=== PATIENT | female | born 1930 | race African-American/Black ===

== ENCOUNTER 2016-12-07 17:54 | Inpatient (IN) | payer MEDICARE, OTHER ==
[~2016-12-07] VITALS: Ht 157.5 cm; Wt 50.3 kg
[2016-12-07 18:02] VITALS: BP 111/48
[2016-12-07] MEDS ORDERED: Albuterol ud Inhalation HHN ONE (18:15)
[2016-12-07] MEDS ORDERED: Ipratropium 0.02% Inh Soln 2.5ml UD HHN ONE (18:15)
[2016-12-07] MEDS ORDERED: Solu-MEDROL 125mg Inj IVP ONE (18:30)
[2016-12-07] MEDS ORDERED: DUONEB 0.5-3(2.53 ML HHN (18:34)
[2016-12-07] MEDS ORDERED: DIGOXIN125 MCG GT (18:34)
[2016-12-07] MEDS ORDERED: BUDESONIDE0.5 MG/2 M IH (18:34)
[2016-12-07] MEDS ORDERED: REMERON15 MG GT (18:34)
[2016-12-07] MEDS ORDERED: MILK OF MA400 MG/51 GT (18:34)
[2016-12-07] MEDS ORDERED: LEVOTHYROXINE100 MCG GT (18:34)
[2016-12-07] MEDS ORDERED: METOPROLOL TART25 MG GT (18:34)
[2016-12-07] MEDS ORDERED: LIPITOR10 MG GT (18:34)
--- NOTE | 2016-12-07 18:36 | Emergency Room Report ---
History of Present Illness General Chief Complaint: Dyspnea/Respdistress Source: Medical Record, EMS Present Illness HPI Patient has history COPD malnutrition depression gastroesophageal reflux disease and hypertension with history of atrial fibrillation and respiratory failure in the past. Patient currently stays at a [facility]. Patient was noted to be acutely hypoxic EMS contacted patient by her further evaluation. Patient's primary care physician is Dr. Jaspal Gonsalez. Patient is essentially nonverbal and unable to provide much history she appeared confused. No further history is available. All history was obtained from medical records and discussion with EMS. Symptoms noted to be highly severe.No other modifying factors. No other associated signs and symptoms. No other complaints were noted. Allergies: Coded Allergies: TETRACYCLINE (Verified Allergy, Unknown, 12/07/16) Patient History Past Medical History: HTN, AFib, asthma, COPD, dementia Past Surgical History: other - tracheostomy, G-tube Pertinent Family History: none Social History Narrative stays at a [facility] Reviewed Nursing Documentation: PMH: Agreed, PSxH: Agreed Review of Systems All Other Systems: limited - poor mental status Physical Exam Vital Signs Date Time Temp Pulse Resp B/P (MAP) Pulse Ox O2 Delivery O2 Flow Rate FiO2 12/07/16 17:52 98.1 82 20 152/82 99 1.0 Sp02 EP Interpretation: reviewed, abnormal - low by me General Appearance: severe distress, thin, Chronically Ill Head: normocephalic, atraumatic Eyes: bilateral eye normal inspection ENT: normal ENT inspection, hearing grossly normal, normal voice Neck: normal inspection, full range of motion, supple, no bony tend Respiratory: respiratory distress, decreased breath sounds, accessory muscle use, wheezing, expiration, inspiration Cardiovascular #1: regular rate, rhythm, no edema Gastrointestinal: normal inspection, normal bowel sounds, non tender, soft, no guarding, no hernia Genitourinary: no CVA tenderness Musculoskeletal: normal inspection, back normal, normal range of motion Neurologic: responsive, other - grossly nonfocal Psychiatric: depressed affect, anxious Skin: normal inspection, normal color, no rash Procedures Critical Care Time Critical Care Time Patient had a critical medical condition which untreated could potentially result in life or limb threatening injury. Total critical care time excluding procedures was approximately 45 minutes. Medical Decision Making Diagnostic Impression: Primary Impression: Dyspnea Additional Impressions: Respiratory distress COPD exacerbation ER Course Patient presents emergency department today complaining of shortness of breath. Differential diagnoses include acute pneumonia, CHF, acute coronary syndrome, pneumothorax, asthma, COPD flare, just to name a few.Given the severity of the patient's presentation I felt this is a highly complex patient. This patient required extensive workup. Patient laboratory workup was not impressive except for hypoxia. Patient's chest x-ray was negative. However given severe patient presentation I felt the patient require immediate intervention. Patient was given albuterol Atrovent so Solu-Medrol. Patient improved significantly. Patient will require admission to telemetry because of persistent hypoxia. Case was discussed with Dr. Jaspal Gonsalez. Patient will be admitted to telemetry for further treatment. Labs Test 12/07/16 18:15 12/07/16 18:20 Arterial Blood pH 7.390 (7.350-7.450) Arterial Blood Partial Pressure CO2 45.6 mmHg (35.0-45.0) Arterial Blood Partial Pressure O2 64.0 mmHg (75.0-100.0) Arterial Blood HCO3 27.0 mmol/L (22.0-26.0) Arterial Blood Oxygen Saturation 91.4 % (92.0-98.0) Arterial Blood Base Excess 1.6 Adam Test Positive White Blood Count 13.5 K/UL (4.8-10.8) Red Blood Count 4.22 M/UL (4.20-5.40) Hemoglobin 12.2 G/DL (12.0-16.0) Hematocrit 39.6 % (37.0-47.0) Mean Corpuscular Volume 94 FL (80-99) Mean Corpuscular Hemoglobin 28.9 PG (27.0-31.0) Mean Corpuscular Hemoglobin Concent 30.7 G/DL (32.0-36.0) Red Cell Distribution Width 13.5 % (11.6-14.8) Platelet Count 192 K/UL (150-450) Mean Platelet Volume 8.3 FL (6.5-10.1) Neutrophils (%) (Auto) 82.1 % (45.0-75.0) Lymphocytes (%) (Auto) 10.9 % (20.0-45.0) Monocytes (%) (Auto) 5.0 % (1.0-10.0) Eosinophils (%) (Auto) 0.9 % (0.0-3.0) Basophils (%) (Auto) 1.1 % (0.0-2.0) Prothrombin Time 10.3 SEC (9.30-11.50) Prothromb Time International Ratio 1.0 (0.9-1.1) Activated Partial Thromboplast Time 29 SEC (23-33) Sodium Level 140 MMOL/L (136-145) Potassium Level 5.0 MMOL/L (3.5-5.1) Chloride Level 101 MMOL/L (98-107) Carbon Dioxide Level 29 MMOL/L (21-32) Anion Gap 10 mmol/L (5-15) Blood Urea Nitrogen 32 mg/dL (7-18) Creatinine 1.1 MG/DL (0.55-1.30) Estimat Glomerular Filtration Rate mL/min (>60) Glucose Level 138 MG/DL (74-106) Calcium Level 9.5 MG/DL (8.5-10.1) Total Bilirubin 0.3 MG/DL (0.2-1.0) Aspartate Amino Transf (AST/SGOT) 42 U/L (15-37) Alanine Aminotransferase (ALT/SGPT) 65 U/L (12-78) Alkaline Phosphatase 105 U/L (46-116) Total Creatine Kinase 103 U/L (26-308) Creatine Kinase MB 2.2 NG/ML (0.0-3.6) Creatine Kinase MB Relative Index 2.1 Troponin I 0.015 ng/mL (0.000-0.056) Pro-B-Type Natriuretic Peptide 778 pg/mL (0-125) Total Protein 7.3 G/DL (6.4-8.2) Albumin 3.4 G/DL (3.4-5.0) Globulin 3.9 g/dL Albumin/Globulin Ratio 0.9 (1.0-2.7) Lipase 230 U/L (73-393) EKG Diagnostic Results Rate: normal Rhythm: NSR ST Segments: no acute changes Rhythm Strip Diag. Results EP Interpretation: yes Rate: 72 Rhythm: NSR, no PVC's, no ectopy Chest X-Ray Diagnostic Results Chest X-Ray Diagnostic Results : Chest X-Ray Ordered: Yes # of Views/Limited/Complete: 1 View Indication: Shortness of Breath EP Interpretation: Yes Interpretation: no consolidation, no effusion, no pneumothorax, no acute cardiopulmonary disease Impression: No acute disease Electronically Signed by: Electronically signed by Maci Francisco MD Last Vital Signs Date Time Temp Pulse Resp B/P (MAP) Pulse Ox O2 Delivery O2 Flow Rate FiO2 12/07/16 17:52 98.1 82 20 152/82 99 1.0 Status: improved Disposition: ADMITTED INPATIENT Condition: Serious MACI FRANCISCO M.D. Dec 07, 2016 18:36
[2016-12-07 18:56] LABS: PROTHROMBIN TIME 10.3 SEC (9.30-11.50)
[2016-12-07 19:03] LABS: BASOPHILS % (AUTO) 1.1 % (0.0-2.0); EOSINOPHILS % (AUTO) 0.9 % (0.0-3.0); LYMPHOCYTES % (AUTO) 10.9 % (20.0-45.0); MEAN CORPUSCULAR HEMOGLOBIN 28.9 PG (27.0-31.0); MEAN CORPUSCULAR HGB CONC 30.7 G/DL (32.0-36.0); MEAN CORPUSCULAR VOLUME 94 FL (80-99); MEAN PLATELET VOLUME 8.3 FL (6.5-10.1); NEUTROPHILS % (AUTO) 82.1 % (45.0-75.0); PLATELET COUNT 192 K/UL (150-450); RED BLOOD COUNT 4.22 M/UL (4.20-5.40); RED CELL DISTRIBUTION WIDTH 13.5 % (11.6-14.8); WHITE BLOOD COUNT 13.5 K/UL (4.8-10.8)
[2016-12-07 19:05] LABS: ABG ALLEN TEST POSITIVE; ABG BASE EXCESS 1.6; ABG PCO2 45.6 mmHg (35.0-45.0)
[2016-12-07 19:12] LABS: ALANINE AMINOTRANSFERASE 65 U/L (12-78); ALBUMIN/GLOBULIN RATIO 0.9 (1.0-2.7); ANION GAP 10 mmol/L (5-15); ASPARTATE AMINO TRANSFERASE 42 U/L (15-37); CALCIUM 9.5 MG/DL (8.5-10.1); CARBON DIOXIDE 29 MMOL/L (21-32); CHLORIDE 101 MMOL/L (98-107); CKMB 2.2 NG/ML (0.0-3.6); CREATININE 1.1 MG/DL (0.55-1.30); LIPASE 230 U/L (73-393); SODIUM 140 MMOL/L (136-145); TOTAL PROTEIN 7.3 G/DL (6.4-8.2)
[2016-12-07 19:30] VITALS: BP 116/47
[2016-12-07 21:31] VITALS: BP 110/60
[2016-12-07] MEDS ORDERED: Albuterol/Ipratropium 3ml neb HHN PRN (23:45)
[2016-12-08 00:25] VITALS: BP 112/65
[2016-12-08 04:21] VITALS: BP 116/59
--- NOTE | 2016-12-08 07:02 | Wound Care Consultation ---
Wound Assessment Wound Assessment : Wound Number: 1 Wound Present on Admission: Yes New Wound: No Status Change of Wound: No Wound Location Body Site Modif: mid Wound Location Body Site: sacral Wound Type: pressure ulcer Kristyn Test: Does not Kristyn Pressure Ulcer Stage: III - healing Wound Thickness: Full Thickness Wound Length: 2.5 Wound Width: 2.0 Wound Depth: less than 0.1 Percent of Wound Harvel/Red: 100 Wound Drainage Amount: None Wound Drainage Odor: None/Absent Tissue Surrounding Wound: Intact Wound General Appearance: Reddened Wound Comment #1 Sacral healing stage III pressure ulcer #2 Left and right heels and feet with dry and flaky skin Recommendation -Sacral healing stage III pressure ulcer, Cleanse with saline, pat dry, apply Triad cream, cover with bordered gauze daily and PRN soiled/dislodged -Left heel, right heels, left foot and right foot noted with dry and flaky skin, Cleanse with soap and water, pat dry apply A&D ointment daily -Keep clean and dry -Turn and reposition -Optimize nutrition -Low air loss SPR mattress -Offload both heels -Heel protector on both heels -Assess and f/u accordingly for any changes MIGUEL NJ RN Dec 08, 2016 07:02
[2016-12-08 07:55] LABS: MEAN CORPUSCULAR HEMOGLOBIN 30.2 PG (27.0-31.0); MEAN CORPUSCULAR HGB CONC 32.6 G/DL (32.0-36.0); MEAN CORPUSCULAR VOLUME 93 FL (80-99); MEAN PLATELET VOLUME 9.1 FL (6.5-10.1); PLATELET COUNT 198 K/UL (150-450); RED BLOOD COUNT 4.12 M/UL (4.20-5.40); RED CELL DISTRIBUTION WIDTH 13.3 % (11.6-14.8); WHITE BLOOD COUNT 15.3 K/UL (4.8-10.8)
[2016-12-08 08:13] LABS: ALANINE AMINOTRANSFERASE 54 U/L (12-78); ALBUMIN/GLOBULIN RATIO 0.7 (1.0-2.7); ANION GAP 12 mmol/L (5-15); ASPARTATE AMINO TRANSFERASE 27 U/L (15-37); CALCIUM 9.6 MG/DL (8.5-10.1); CARBON DIOXIDE 28 MMOL/L (21-32); CHLORIDE 101 MMOL/L (98-107); CREATININE 1.5 MG/DL (0.55-1.30); POTASSIUM 4.8 MMOL/L (3.5-5.1); SODIUM 141 MMOL/L (136-145); TOTAL PROTEIN 7.6 G/DL (6.4-8.2)
[2016-12-08 08:21] VITALS: BP 116/59
[2016-12-08] MEDS: Vitamin A&D Oint 2oz Tube TOPIC SCH (09:00)
[2016-12-08 10:01] LABS: BAND NEUTROPHILS % (MANUAL) 4 % (0-8); BASOPHILS % (MANUAL) 0 % (0-2); EOSINOPHILS % (MANUAL) 0 % (0-3); LYMPHOCYTES % (MANUAL) 6 % (20-45); NEUTROPHILS % (MANUAL) 88 % (45-75); PLATELET ESTIMATE ADEQUATE; PLATELET MORPHOLOGY NORMAL; TOTAL CELLS COUNTED 100
[2016-12-08] MEDS: Milk of Magnesia 30ml Ud GT SCH (10:20)
[2016-12-08] MEDS: Multivitamin w/Minerals tab ORAL SCH (10:20)
[2016-12-08] MEDS: Digoxin 0.125mg tab GT SCH (10:21)
[2016-12-08] MEDS: Metoprolol 25mg tab GT SCH (10:22)
--- NOTE | 2016-12-08 10:34 | Diagnostic Imaging Report ---
Indication: COUGH Technique: One view of the chest Comparison: none Findings: Lungs and pleural spaces are clear. Aorta is tortuous and calcified. Impression: No acute process This agrees with the preliminary interpretation provided by the emergency room physician
[2016-12-08 11:26] VITALS: BP 132/71
--- NOTE | 2016-12-08 12:39 | Diagnostic Imaging Report ---
APPROVED REPORT CPT Code: 90860 Present Symptoms Shortness of breath BILATERAL: Imaging reveals a patent deep venous system bilaterally. There is no evidence of thrombus within the femoral, popliteal or tibial segments. The greater saphenous veins are also within normal limits. Doppler indicates normal spontaneous flow within these segments.
--- NOTE | 2016-12-08 14:10 | Consultation ---
Consult Note Assessment/Plan dict COPD exac steroids, abx, SOFY JONES Dec 08, 2016 14:10
--- NOTE | 2016-12-08 14:18 | Infectious Diseases Prog Note ---
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 Subjective Allergies: Coded Allergies: TETRACYCLINE (Verified Allergy, Unknown, 12/07/16) Objective Vital Signs Last 24 Hour Vital Signs Date Time Temp Pulse Resp B/P (MAP) Pulse Ox O2 Delivery O2 Flow Rate FiO2 12/08/16 11:26 97.8 84 18 132/71 99 Nasal Cannula 2.0 12/08/16 10:22 82 116/59 12/08/16 10:21 82 12/08/16 08:21 97.9 82 18 116/59 99 Nasal Cannula 2.0 12/08/16 08:04 92 16 Nasal Cannula 2.0 28 12/08/16 04:21 97.9 79 20 116/59 99 Nasal Cannula 2.0 79 12/08/16 03:46 81 12/08/16 00:25 98.1 83 22 112/65 98 Nasal Cannula 2.0 12/08/16 00:00 81 12/07/16 22:48 77 18 116/89 99 Room Air 12/07/16 21:31 98.1 70 18 110/60 100 Nasal Cannula 6.0 73 12/07/16 19:30 98.1 73 18 116/47 100 Simple Mask 6.0 12/07/16 19:15 64 18 100 Simple Mask 6.0 12/07/16 19:06 85 18 94 Room Air 12/07/16 19:06 85 15 Room Air 12/07/16 18:02 73 15 111/48 100 Non-Rebreather 15.0 12/07/16 18:02 82 20 Non-Rebreather 15.0 12/07/16 17:52 98.1 82 20 152/82 99 1.0 Height (Feet): 5 Height (Inches): 2.00 Weight (Pounds): 111 Laboratory Tests Test 12/07/16 18:15 12/07/16 18:20 12/08/16 05:30 Arterial Blood pH 7.390 (7.350-7.450) Arterial Blood Partial Pressure CO2 45.6 mmHg (35.0-45.0) H Arterial Blood Partial Pressure O2 64.0 mmHg (75.0-100.0) L Arterial Blood HCO3 27.0 mmol/L (22.0-26.0) H Arterial Blood Oxygen Saturation 91.4 % (92.0-98.0) L Arterial Blood Base Excess 1.6 Adam Test Positive White Blood Count 13.5 K/UL (4.8-10.8) H 15.3 K/UL (4.8-10.8) H Red Blood Count 4.22 M/UL (4.20-5.40) 4.12 M/UL (4.20-5.40) L Hemoglobin 12.2 G/DL (12.0-16.0) 12.5 G/DL (12.0-16.0) Hematocrit 39.6 % (37.0-47.0) 38.2 % (37.0-47.0) Mean Corpuscular Volume 94 FL (80-99) 93 FL (80-99) Mean Corpuscular Hemoglobin 28.9 PG (27.0-31.0) 30.2 PG (27.0-31.0) Mean Corpuscular Hemoglobin Concent 30.7 G/DL (32.0-36.0) L 32.6 G/DL (32.0-36.0) Red Cell Distribution Width 13.5 % (11.6-14.8) 13.3 % (11.6-14.8) Platelet Count 192 K/UL (150-450) 198 K/UL (150-450) Mean Platelet Volume 8.3 FL (6.5-10.1) 9.1 FL (6.5-10.1) Neutrophils (%) (Auto) 82.1 % (45.0-75.0) H % (45.0-75.0) Lymphocytes (%) (Auto) 10.9 % (20.0-45.0) L % (20.0-45.0) Monocytes (%) (Auto) 5.0 % (1.0-10.0) % (1.0-10.0) Eosinophils (%) (Auto) 0.9 % (0.0-3.0) % (0.0-3.0) Basophils (%) (Auto) 1.1 % (0.0-2.0) % (0.0-2.0) Prothrombin Time 10.3 SEC (9.30-11.50) Prothromb Time International Ratio 1.0 (0.9-1.1) Activated Partial Thromboplast Time 29 SEC (23-33) Sodium Level 140 MMOL/L (136-145) 141 MMOL/L (136-145) Potassium Level 5.0 MMOL/L (3.5-5.1) 4.8 MMOL/L (3.5-5.1) Chloride Level 101 MMOL/L (98-107) 101 MMOL/L (98-107) Carbon Dioxide Level 29 MMOL/L (21-32) 28 MMOL/L (21-32) Anion Gap 10 mmol/L (5-15) 12 mmol/L (5-15) Blood Urea Nitrogen 32 mg/dL (7-18) H 37 mg/dL (7-18) H Creatinine 1.1 MG/DL (0.55-1.30) 1.5 MG/DL (0.55-1.30) H Estimat Glomerular Filtration Rate mL/min (>60) mL/min (>60) Glucose Level 138 MG/DL (74-106) H 146 MG/DL (74-106) H Calcium Level 9.5 MG/DL (8.5-10.1) 9.6 MG/DL (8.5-10.1) Total Bilirubin 0.3 MG/DL (0.2-1.0) 0.4 MG/DL (0.2-1.0) Aspartate Amino Transf (AST/SGOT) 42 U/L (15-37) H 27 U/L (15-37) Alanine Aminotransferase (ALT/SGPT) 65 U/L (12-78) 54 U/L (12-78) Alkaline Phosphatase 105 U/L (46-116) 94 U/L (46-116) Total Creatine Kinase 103 U/L (26-308) Creatine Kinase MB 2.2 NG/ML (0.0-3.6) Creatine Kinase MB Relative Index 2.1 Troponin I 0.015 ng/mL (0.000-0.056) Pro-B-Type Natriuretic Peptide 778 pg/mL (0-125) H Total Protein 7.3 G/DL (6.4-8.2) 7.6 G/DL (6.4-8.2) Albumin 3.4 G/DL (3.4-5.0) 3.2 G/DL (3.4-5.0) L Globulin 3.9 g/dL 4.4 g/dL Albumin/Globulin Ratio 0.9 (1.0-2.7) L 0.7 (1.0-2.7) L Lipase 230 U/L (73-393) Differential Total Cells Counted 100 Neutrophils % (Manual) 88 % (45-75) H Lymphocytes % (Manual) 6 % (20-45) L Monocytes % (Manual) 2 % (1-10) Eosinophils % (Manual) 0 % (0-3) Basophils % (Manual) 0 % (0-2) Band Neutrophils 4 % (0-8) Platelet Estimate Adequate Platelet Morphology Normal Red Blood Cell Morphology Normal Current Medications Medications (Trade) Dose Ordered Sig/Jill Route PRN Reason Start Time Stop Time Status Last Admin Dose Admin Acetaminophen (Tylenol) 650 mg Q4H PRN ORAL Mild Pain/Temp > 100.5 12/08/16 00:30 01/07/17 00:29 Albuterol/ Ipratropium (Albuterol/ Ipratropium) 3 ml Q4H HHN 12/08/16 14:15 12/12/16 23:44 UNV Atorvastatin Calcium (Lipitor) 10 mg BEDTIME GT 12/08/16 21:00 01/07/17 20:59 Digoxin (Lanoxin) 0.125 mg DAILY GT 12/08/16 09:00 01/07/17 08:59 12/08/16 10:21 Levofloxacin 100 ml @ 100 mls/hr Q24H IVPB 12/08/16 14:15 12/15/16 14:14 UNV Levothyroxine Sodium (Synthroid) 100 mcg DAILY@0630 ORAL 12/08/16 06:30 01/07/17 06:29 12/08/16 06:26 Magnesium Hydroxide (Mom) 7.5 ml DAILY GT 12/08/16 09:00 01/07/17 08:59 12/08/16 10:20 Methylprednisolone Sodium Succinate (Solu-MEDROL) 40 mg EVERY 8 HOURS IVP 12/08/16 14:15 01/07/17 14:14 UNV Metoprolol Tartrate (Lopressor) 25 mg DAILY GT 12/08/16 09:00 01/07/17 08:59 12/08/16 10:22 Mirtazapine (Remeron) 22.5 mg EVERY 12 HOURS GT 12/08/16 09:00 01/07/17 08:59 12/08/16 10:21 Multivitamins Therapeutic (Therapeutic Multivitamin) 1 ea DAILY ORAL 12/08/16 09:00 01/07/17 08:59 12/08/16 10:20 Vitamin A/Vitamin D (A & D Oint) 1 applic DAILY TOPIC 12/08/16 09:00 01/07/17 08:59 12/08/16 09:00 Larissa Ding M.D. Dec 08, 2016 14:18
[2016-12-08] MEDS: Albuterol/Ipratropium 3ml neb HHN SCH ×2 (15:00→20:01)
[2016-12-08 16:07] VITALS: BP 119/67
[2016-12-08] MEDS: Levofloxacin 250mg/D5W 50ml IVPB SCH (16:09)
[2016-12-08] MEDS: Solu-MEDROL 40mg Inj IVP SCH ×2 (16:09→21:03)
[2016-12-08 20:00] VITALS: BP 132/69
--- NOTE | 2016-12-08 23:00 | Consultation ---
DATE OF CONSULTATION: 12/08/2016 PULMONARY CONSULTATION CHIEF COMPLAINT: Low saturation and short of breath. HISTORY OF PRESENT ILLNESS: The patient is a poor historian. The records were reviewed. She was brought to the emergency department from a [place] [facility] by paramedics because of low saturation. She is a past smoker and is known to have COPD and respiratory failure in the past. She is coughing and producing some sputum. She has no chest pain and is not short of breath at the present. PAST MEDICAL HISTORY: Chronic obstructive pulmonary disease, malnutrition, depression, acid reflux disease, hypertension, atrial fibrillation, possible asthma, dementia, prior tracheostomy, and gastric feeding tube. ALLERGIES: Tetracycline. MEDICATIONS: Reviewed. REVIEW OF SYSTEMS: Cannot be obtained. PHYSICAL EXAMINATION: GENERAL: The patient is alert and responds appropriately to verbal commands but seems to be aphasic and mumbles. VITAL SIGNS: Stable with saturation 99% on 2 liters. There is no high fever. SKIN: Warm and dry. She appears chronically ill and malnourished. HEENT: Head is normocephalic. She is on nasal oxygen. CHEST: The chest has decreased air entry. There is no consolidation or wheezing. CARDIAC: Rhythm is regular. ABDOMEN: Soft with G-tube in place. The liver and spleen are not enlarged. EXTREMITIES: No clubbing, cyanosis, or edema. LABORATORY AND DIAGNOSTIC DATA: White count is elevated at 15,000, hemoglobin is 12.5. There is a left shift. Chest x-ray is clear. Laboratory studies show creatinine 1.5. Albumin is 3.2. Blood gas showed pH 7.39, pCO2 45, and pO2 64 on unknown amount of oxygen. She has no urine. IMPRESSION: 1. Chronic obstructive pulmonary disease exacerbation. 2. Leukocytosis, consider urinary tract infection or bronchitis. 3. Dementia. 4. History of stroke with right hemiparesis, aphasia and dysarthria. 5. Hypertension. 6. Gastrostomy tube. 7. History of atrial fibrillation. PLAN: The patient will be treated with antibiotics, respiratory therapy, and steroids. We will monitor her cardiac rhythm and saturation. The patient was discussed with the Infectious Disease small business consultant. Thank you for asking me to see her in consultation. Steve Barrientos M.D. DR: RAGHAV JOB#: [id number] CC: Steve Barrientos M.D.; Fax#: [phone] NAEEM CENTENO M.D. ; FAX#: [phone]
--- NOTE | 2016-12-08 23:30 | Consultation ---
DATE OF CONSULTATION: 12/08/2016 INFECTIOUS DISEASES CONSULTATION CONSULTING PHYSICIAN: Larissa Ding M.D. REQUESTING PHYSICIAN: Jaspal Khan M.D. REASON FOR CONSULTATION: Acute bronchitis with COPD exacerbation. Recommendation for antibiotics treatment. HISTORY OF PRESENT ILLNESS: The patient is an 85-year-old female with history of dementia, COPD, depression, GERD, and atrial fibrillation with respiratory failure in the past was [facility] for hypoxemia, shortness of breath, and cough. The patient was found to be confused, unable to provide any history. In the emergency room, she had low oxygenation with temperature of 98.1, mildly elevated white count. Her ABG showed CO2 retention with low oxygen saturation. The patient was admitted to the hospital for further evaluation and management and I was consulted by the primary provider for antibiotics choice and further treatment. As of note, the patient is demented, baseline poor historian, cannot not provide good history. History was mainly obtained from the medical record. PAST MEDICAL HISTORY: Significant for dementia, hypertension, atrial fibrillation, asthma, and COPD. PAST SURGICAL HISTORY: She had tracheostomy status post removal in the past and G-tube placement. ALLERGIES: She is allergic to tetracycline. MEDICATIONS: She received methylprednisone nebulizer treatment in the emergency room. For the rest of her medications, please refer to [facility]. FAMILY HISTORY: Unable to obtain. SOCIAL HISTORY: The [facility] the [facility]. No recent drugs, tobacco, or alcohol. REVIEW OF SYSTEMS: Unable to obtain, the patient is poor historian. PHYSICAL EXAMINATION: VITAL SIGNS: Temperature 97.8, pulse 84, respiration 18, blood pressure 132/71, and saturation 99% on 2 liters nasal cannula. GENERAL: Elderly female, up in bed, awake, alert, follows commands, demented at baseline, not in acute distress. Normal breathing efforts. HEENT: Normocephalic and atraumatic. Pupils are reactive to light equally. Moist oral mucosa. No exudate. NECK: Supple. No lymphadenopathy. CARDIOVASCULAR: Regular rate and rhythm. No murmur. No gallop. LUNGS: She had crackles with expiratory wheezing mainly on the left side of her chest. Normal breathing effort. ABDOMEN: Soft, nontender, and nondistended. Positive bowel sounds. No hepatosplenomegaly or ascites. G-tube site looks intact. EXTREMITIES: No edema or cyanosis. SKIN: No rash or hives. She had a sacral small skin break with no drainage or exudate or foul smelling. LABORATORY AND DIAGNOSTIC DATA: Labs showed white count of 15.3, hemoglobin of 12.5, and platelet count of 198. BUN of 37 and creatinine of 1.5. AST of 27 and ALT of 54. Imaging, chest x-ray showed no acute infiltration or consolidation. Venous Doppler of both legs was negative for DVT. ASSESSMENT AND RECOMMENDATION: 1. Acute bronchitis. We will send influenza screening test and start Levaquin empiric therapy. We will repeat chest x-ray. 2. Chronic obstructive pulmonary disease exacerbation due to the above. Continue nebulizer treatment and steroids as per Pulmonary. Monitor chest x-ray. 3. Respiratory distress due to the above. Continue oxygen to keep O2 saturation more than 90%. Continue inhalers. Monitor chest x-ray. Pulmonary is following. Thank you for the consult. Larissa Ding M.D. DR: KAYLEIGH JOB#: [id number] CC:
[2016-12-09] VITALS: BP 124/72
[2016-12-09] MEDS: Albuterol/Ipratropium 3ml neb HHN SCH ×7 (00:17→23:34)
[2016-12-09 04:09] VITALS: BP 127/74
[2016-12-09] MEDS: Solu-MEDROL 40mg Inj IVP SCH ×3 (06:00→21:21)
--- NOTE | 2016-12-09 06:16 | History and Physical Report ---
DATE OF ADMISSION: 12/07/2016 HISTORY OF PRESENT ILLNESS: [facility] She is admitted for hypoxia and COPD exacerbation, rule out pneumonia. The patient is a poor historian and has advanced dementia and cannot rely upon her history. She does have some cough and shortness of breath. Cannot obtain anymore further history. The patient was brought into the hospital to the emergency room via 911 with hypoxia and respiratory distress. PAST MEDICAL HISTORY: COPD, hyperlipidemia, advanced dementia, arrhythmia, hypothyroidism, hypertension, and depression. PAST SURGICAL HISTORY: Denies. MEDICATIONS: Lipitor, digoxin, Levoxyl, breathing treatment, magnesium, metoprolol, and mirtazapine. ALLERGIES: Tetracycline. SOCIAL HISTORY: Denies history of alcohol or illicit drugs. She [facility]. FAMILY HISTORY: Unable to obtain. REVIEW OF SYSTEMS: HEENT: Denies headaches. RESPIRATORY: Reports shortness of breath, wheezing, and cough. CARDIOVASCULAR: Denies chest pain. GASTROINTESTINAL: Denies nausea, vomiting, or diarrhea. EXTREMITIES: She does have mild back pain, which is chronic. CENTRAL NERVOUS SYSTEM: No change in vision or speech pattern, feels weak. PHYSICAL EXAMINATION: GENERAL: The patient is on the thinner side. VITAL SIGNS: Temperature is 97.9, pulse 83, and blood pressure 116/59. HEENT: PERRLA. NECK: Supple. No lymphadenopathy. CHEST: Bibasilar wheezing. CARDIOVASCULAR: Regular rate and rhythm. ABDOMEN: Soft and nontender. EXTREMITIES: No edema. NEUROLOGIC: Generalized weakness. LABORATORY AND DIAGNOSTIC DATA: WBC of 14.5, hemoglobin 12.2, and platelets 192. Sodium 140, potassium 5, BUN 32, creatinine 1.1, and glucose of 138. Chest x-ray shows no acute process. ASSESSMENT: 1. Chronic obstructive pulmonary disease exacerbation. 2. Hypoxia. 3. Shortness of breath. PLAN: I have asked Dr. Sanchez, Dr. Barrientos, and Dr. Lewis to see the patient for dehydration and above-mentioned diagnoses and treatment. Jaspal Khan M.D. DR: ILIANA JOB#: [id number] CC:
[2016-12-09 08:00] VITALS: BP 115/56
[2016-12-09] MEDS: Multivitamin w/Minerals tab ORAL SCH (09:19)
[2016-12-09] MEDS: Digoxin 0.125mg tab GT SCH (09:20)
[2016-12-09] MEDS: Metoprolol 25mg tab GT SCH (09:21)
[2016-12-09] MEDS: Milk of Magnesia 30ml Ud GT SCH (09:22)
[2016-12-09] MEDS: Vitamin A&D Oint 2oz Tube TOPIC SCH (09:23)
[2016-12-09 12:00] VITALS: BP 107/60
--- NOTE | 2016-12-09 13:38 | Infectious Diseases Prog Note ---
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 Subjective Constitutional: Reports: no symptoms HEENT: Reports: no symptoms Respiratory: Reports: no symptoms Breasts: Reports: no symptoms Cardiovascular: Reports: no symptoms Gastrointestinal/Abdominal: Reports: no symptoms Genitourinary: Reports: no symptoms Neurologic: Reports: no symptoms Psychiatric: Reports: no symptoms Skin: Reports: no symptoms Endocrine: Reports: no symptoms Hematologic: Reports: no symptoms Allergies: Coded Allergies: TETRACYCLINE (Verified Allergy, Unknown, 12/07/16) Objective Vital Signs Last 24 Hour Vital Signs Date Time Temp Pulse Resp B/P (MAP) Pulse Ox O2 Delivery O2 Flow Rate FiO2 12/09/16 12:00 97.5 73 18 107/60 98 Nasal Cannula 2.0 12/09/16 11:30 Nasal Cannula 12/09/16 11:30 Nasal Cannula 12/09/16 09:21 74 127/74 12/09/16 09:20 74 12/09/16 08:00 97.0 91 18 115/56 99 Nasal Cannula 2.0 12/09/16 07:24 74 16 99 Nasal Cannula 2.0 12/09/16 07:17 Nasal Cannula 2.0 12/09/16 07:17 12/09/16 07:17 96 Nasal Cannula 2.0 12/09/16 07:17 78 16 96 Nasal Cannula 2.0 12/09/16 04:09 96.6 83 18 127/74 98 Room Air 12/09/16 04:00 83 12/09/16 03:50 88 18 100 Nasal Cannula 2.0 12/09/16 03:48 85 18 95 Nasal Cannula 2.0 12/09/16 00:14 82 18 100 Nasal Cannula 2.0 12/09/16 00:13 81 18 95 Room Air 12/09/16 00:00 97.2 80 124/72 97 Nasal Cannula 12/09/16 00:00 82 12/08/16 21:08 94 Nasal Cannula 2.0 12/08/16 21:08 Nasal Cannula 2.0 28 12/08/16 20:10 70 18 100 Nasal Cannula 2.0 28 12/08/16 20:00 84 16 Nasal Cannula 2.0 28 12/08/16 20:00 77 12/08/16 20:00 84 18 95 Room Air 12/08/16 20:00 98.1 84 18 132/69 96 12/08/16 16:07 97.9 78 18 119/67 100 Nasal Cannula 2.0 12/08/16 16:00 70 Height (Feet): 5 Height (Inches): 2.00 Weight (Pounds): 111 General Appearance: WD/WN, no acute distress HEENT: normocephalic, atraumatic, anicteric, mucous membranes moist, PERRL Respiratory/Chest: chest wall non-tender, lungs clear, normal breath sounds, no respiratory distress, no accessory muscle use Cardiovascular: normal peripheral pulses, normal rate, regular rhythm, no gallop/murmur, no JVD Abdomen: normal bowel sounds, soft, non tender, no organomegaly, non distended , no mass Extremities: no cyanosis, no clubbing Skin: no rash, no lesions, no ulcers Neurologic/Psychiatric: alert Microbiology Date/Time Source Procedure Growth Status 12/07/16 18:31 Blood Blood Culture - Preliminary NO GROWTH AFTER 24 HOURS Resulted 12/07/16 18:20 Blood Blood Culture - Preliminary NO GROWTH AFTER 24 HOURS Resulted 12/08/16 14:30 Nasopharynx Influenza Types A,B Antigen (KENDAL) - Final Complete 12/07/16 22:40 Nasal Nares MRSA Culture - Final NO METHICILLIN RESISTANT STAPH AUREUS... Complete Current Medications Medications (Trade) Dose Ordered Sig/Jill Route PRN Reason Start Time Stop Time Status Last Admin Dose Admin Acetaminophen (Tylenol) 650 mg Q4H PRN ORAL Mild Pain/Temp > 100.5 12/08/16 00:30 01/07/17 00:29 12/09/16 09:19 Albuterol/ Ipratropium (Albuterol/ Ipratropium) 3 ml Q4HRT HHN 12/08/16 15:00 12/13/16 14:59 12/09/16 07:17 Ascorbic Acid (Vitamin C) 500 mg DAILY PEG 12/10/16 09:00 01/09/17 08:59 Atorvastatin Calcium (Lipitor) 10 mg BEDTIME GT 12/08/16 21:00 01/07/17 20:59 12/08/16 21:01 Digoxin (Lanoxin) 0.125 mg DAILY GT 12/08/16 09:00 01/07/17 08:59 12/09/16 09:20 Levofloxacin 50 ml @ 50 mls/hr Q24H IVPB 12/09/16 15:00 12/16/16 14:59 12/08/16 16:09 Levothyroxine Sodium (Synthroid) 100 mcg DAILY@0630 ORAL 12/08/16 06:30 01/07/17 06:29 12/09/16 06:00 Magnesium Hydroxide (Mom) 7.5 ml DAILY GT 12/08/16 09:00 01/07/17 08:59 12/09/16 09:22 Methylprednisolone Sodium Succinate (Solu-MEDROL) 40 mg EVERY 8 HOURS IVP 12/08/16 15:00 01/07/17 14:59 12/09/16 06:00 Metoprolol Tartrate (Lopressor) 25 mg DAILY GT 12/08/16 09:00 01/07/17 08:59 12/09/16 09:21 Mirtazapine (Remeron) 22.5 mg EVERY 12 HOURS GT 12/08/16 09:00 01/07/17 08:59 12/09/16 09:17 Multivitamins Therapeutic (Therapeutic Multivitamin) 1 ea DAILY ORAL 12/08/16 09:00 01/07/17 08:59 12/09/16 09:19 Vitamin A/Vitamin D (A & D Oint) 1 applic DAILY TOPIC 12/08/16 09:00 01/07/17 08:59 12/09/16 09:23 Larissa Ding M.D. Dec 09, 2016 13:38
--- NOTE | 2016-12-09 13:42 | Pulmonology Progress Note ---
Assessment/Plan Assessment/Plan IMPRESSION: 1. Chronic obstructive pulmonary disease exacerbation. 2. Leukocytosis, consider urinary tract infection or bronchitis. 3. Dementia. 4. History of stroke with right hemiparesis, aphasia and dysarthria. 5. Hypertension. 6. Gastrostomy tube. 7. History of atrial fibrillation. PLAN: abx steroids and taper nebs po, modified high risk of aspition wound care o2 and check ra sats check sunday Subjective ROS Limited/Unobtainable: Yes Allergies: Coded Allergies: TETRACYCLINE (Verified Allergy, Unknown, 12/07/16) Subjective no events noted still iwth cough no cp nv or bleeding does not get oob on o2 modified po Objective Last 24 Hour Vital Signs Date Time Temp Pulse Resp B/P (MAP) Pulse Ox O2 Delivery O2 Flow Rate FiO2 12/09/16 12:00 97.5 73 18 107/60 98 Nasal Cannula 2.0 12/09/16 11:30 Nasal Cannula 12/09/16 11:30 Nasal Cannula 12/09/16 09:21 74 127/74 12/09/16 09:20 74 12/09/16 08:00 97.0 91 18 115/56 99 Nasal Cannula 2.0 12/09/16 07:24 74 16 99 Nasal Cannula 2.0 12/09/16 07:17 Nasal Cannula 2.0 12/09/16 07:17 28 12/09/16 07:17 96 Nasal Cannula 2.0 12/09/16 07:17 78 16 96 Nasal Cannula 2.0 12/09/16 04:09 96.6 83 18 127/74 98 Room Air 12/09/16 04:00 83 12/09/16 03:50 88 18 100 Nasal Cannula 2.0 12/09/16 03:48 85 18 95 Nasal Cannula 2.0 12/09/16 00:14 82 18 100 Nasal Cannula 2.0 12/09/16 00:13 81 18 95 Room Air 12/09/16 00:00 97.2 80 124/72 97 Nasal Cannula 12/09/16 00:00 82 12/08/16 21:08 94 Nasal Cannula 2.0 12/08/16 21:08 Nasal Cannula 2.0 12/08/16 20:10 70 18 100 Nasal Cannula 2.0 12/08/16 20:00 84 16 Nasal Cannula 2.0 28 12/08/16 20:00 77 12/08/16 20:00 84 18 95 Room Air 12/08/16 20:00 98.1 84 18 132/69 96 12/08/16 16:07 97.9 78 18 119/67 100 Nasal Cannula 2.0 12/08/16 16:00 70 Intake and Output 12/09/16 12/10/16 19:00 07:00 # Bowel Movements 1 General Appearance: WD/WN Respiratory/Chest: rhonchi Cardiovascular: normal rate, regular rhythm Abdomen: soft, non tender, no organomegaly Skin: no rash, no lesions Neurologic/Psychiatric: disoriented Lymphatic: no neck adenopathy, no groin adenopathy Microbiology Date/Time Source Procedure Growth Status 12/07/16 18:31 Blood Blood Culture - Preliminary NO GROWTH AFTER 24 HOURS Resulted 12/07/16 18:20 Blood Blood Culture - Preliminary NO GROWTH AFTER 24 HOURS Resulted 12/08/16 14:30 Nasopharynx Influenza Types A,B Antigen (KENDAL) - Final Complete 12/07/16 22:40 Nasal Nares MRSA Culture - Final NO METHICILLIN RESISTANT STAPH AUREUS... Complete Current Medications Medications (Trade) Dose Ordered Sig/Jill Route PRN Reason Start Time Stop Time Status Last Admin Dose Admin Acetaminophen (Tylenol) 650 mg Q4H PRN ORAL Mild Pain/Temp > 100.5 12/08/16 00:30 01/07/17 00:29 12/09/16 09:19 Albuterol/ Ipratropium (Albuterol/ Ipratropium) 3 ml Q4HRT HHN 12/08/16 15:00 12/13/16 14:59 12/09/16 07:17 Ascorbic Acid (Vitamin C) 500 mg DAILY PEG 12/10/16 09:00 01/09/17 08:59 Atorvastatin Calcium (Lipitor) 10 mg BEDTIME GT 12/08/16 21:00 01/07/17 20:59 12/08/16 21:01 Digoxin (Lanoxin) 0.125 mg DAILY GT 12/08/16 09:00 01/07/17 08:59 12/09/16 09:20 Levofloxacin 50 ml @ 50 mls/hr Q24H IVPB 12/09/16 15:00 12/16/16 14:59 12/08/16 16:09 Levothyroxine Sodium (Synthroid) 100 mcg DAILY@0630 ORAL 12/08/16 06:30 01/07/17 06:29 12/09/16 06:00 Magnesium Hydroxide (Mom) 7.5 ml DAILY GT 12/08/16 09:00 01/07/17 08:59 12/09/16 09:22 Methylprednisolone Sodium Succinate (Solu-MEDROL) 40 mg EVERY 8 HOURS IVP 12/08/16 15:00 01/07/17 14:59 12/09/16 06:00 Metoprolol Tartrate (Lopressor) 25 mg DAILY GT 12/08/16 09:00 01/07/17 08:59 12/09/16 09:21 Mirtazapine (Remeron) 22.5 mg EVERY 12 HOURS GT 12/08/16 09:00 01/07/17 08:59 12/09/16 09:17 Multivitamins Therapeutic (Therapeutic Multivitamin) 1 ea DAILY ORAL 12/08/16 09:00 01/07/17 08:59 12/09/16 09:19 Vitamin A/Vitamin D (A & D Oint) 1 applic DAILY TOPIC 12/08/16 09:00 01/07/17 08:59 12/09/16 09:23 CHRISTA OVIEDO DO Dec 09, 2016 13:42
[2016-12-09 16:00] VITALS: BP 112/63
--- NOTE | 2016-12-09 20:27 | General Progress Note ---
Assessment/Plan Problem List: (1) Dyspnea ICD Codes: R06.00 - Dyspnea, unspecified SNOMED: 100914652 (2) Respiratory distress ICD Codes: R06.00 - Dyspnea, unspecified SNOMED: 791814627 (3) COPD exacerbation ICD Codes: J44.1 - Chronic obstructive pulmonary disease with (acute) exacerbation SNOMED: 077600812, 653379513 (4) Hypoxia ICD Codes: R09.02 - Hypoxemia SNOMED: 66020062, 611864492 Status: progressing Assessment/Plan copd exac improving not hypoxic afebrile reviewed chart and labs Subjective Constitutional: Reports: no symptoms Allergies: Coded Allergies: TETRACYCLINE (Verified Allergy, Unknown, 12/07/16) Objective Last 24 Hour Vital Signs Date Time Temp Pulse Resp B/P (MAP) Pulse Ox O2 Delivery O2 Flow Rate FiO2 12/09/16 19:56 77 18 99 Nasal Cannula 2.0 12/09/16 19:46 71 16 98 Nasal Cannula 2.0 12/09/16 19:46 98 Nasal Cannula 2.0 12/09/16 19:46 Nasal Cannula 2.0 12/09/16 18:27 96 12/09/16 16:13 76 18 100 Nasal Cannula 2.0 12/09/16 16:00 97.5 70 18 112/63 99 Nasal Cannula 2.0 12/09/16 16:00 74 16 100 Nasal Cannula 2.0 12/09/16 12:00 97.5 73 18 107/60 98 Nasal Cannula 2.0 12/09/16 12:00 75 12/09/16 11:30 Nasal Cannula 12/09/16 11:30 Nasal Cannula 12/09/16 09:21 74 127/74 12/09/16 09:20 74 12/09/16 08:00 96 12/09/16 08:00 97.0 91 18 115/56 99 Nasal Cannula 2.0 12/09/16 07:24 74 16 99 Nasal Cannula 2.0 12/09/16 07:17 Nasal Cannula 2.0 12/09/16 07:17 28 12/09/16 07:17 96 Nasal Cannula 2.0 12/09/16 07:17 78 16 96 Nasal Cannula 2.0 12/09/16 04:09 96.6 83 18 127/74 98 Room Air 12/09/16 04:00 83 12/09/16 03:50 88 18 100 Nasal Cannula 2.0 28 12/09/16 03:48 85 18 95 Nasal Cannula 2.0 28 12/09/16 00:14 82 18 100 Nasal Cannula 2.0 28 12/09/16 00:13 81 18 95 Room Air 12/09/16 00:00 97.2 80 124/72 97 Nasal Cannula 12/09/16 00:00 82 12/08/16 21:08 94 Nasal Cannula 2.0 12/08/16 21:08 Nasal Cannula 2.0 28 Intake and Output 12/09/16 12/10/16 19:00 07:00 Intake Total 273 ml Balance 273 ml Intake Oral 0 ml Free Water 200 ml Tube Feeding 73 ml # Voids 3 # Bowel Movements 1 Height (Feet): 5 Height (Inches): 2.00 Weight (Pounds): 111 General Appearance: confused Cardiovascular: normal rate Respiratory/Chest: chest wall non-tender Jaspal Khan MD Dec 09, 2016 20:27
[2016-12-09 20:28] VITALS: BP 116/68
[2016-12-10 00:11] VITALS: BP 132/71
[2016-12-10] MEDS: Norco 5mg/325mg tab ORAL PRN ×2 (00:18→22:03)
[2016-12-10] MEDS: Albuterol/Ipratropium 3ml neb HHN SCH ×6 (03:25→23:49)
[2016-12-10 04:03] VITALS: BP 127/79
[2016-12-10] MEDS: Solu-MEDROL 40mg Inj IVP SCH ×2 (05:53→20:52)
[2016-12-10 08:00] VITALS: BP 119/58
[2016-12-10] MEDS: Metoprolol 25mg tab GT SCH (09:00)
[2016-12-10] MEDS: Ascorbic Acid 500mg tab PEG SCH (09:00)
[2016-12-10] MEDS: Multivitamin w/Minerals tab ORAL SCH (09:00)
[2016-12-10] MEDS: Milk of Magnesia 30ml Ud GT SCH (09:00)
[2016-12-10] MEDS: Vitamin A&D Oint 2oz Tube TOPIC SCH (09:00)
[2016-12-10] MEDS: Digoxin 0.125mg tab GT SCH (09:00)
[2016-12-10 12:49] VITALS: BP 121/73
--- NOTE | 2016-12-10 12:56 | Pulmonology Progress Note ---
Assessment/Plan Assessment/Plan IMPRESSION: 1. Chronic obstructive pulmonary disease exacerbation. 2. Leukocytosis, consider urinary tract infection or bronchitis. 3. Dementia. 4. History of stroke with right hemiparesis, aphasia and dysarthria. 5. Hypertension. 6. Gastrostomy tube. 7. History of atrial fibrillation. PLAN: better today abx steroids and taper to q 12 nebs po, modified high risk of aspition wound care o2 and check ra sats check sunday Subjective ROS Limited/Unobtainable: Yes Allergies: Coded Allergies: TETRACYCLINE (Verified Allergy, Unknown, 12/07/16) Subjective no events noted more verbal today still iwth cough no cp nv or bleeding does not get oob on o2 modified po Objective Last 24 Hour Vital Signs Date Time Temp Pulse Resp B/P (MAP) Pulse Ox O2 Delivery O2 Flow Rate FiO2 12/10/16 12:49 97.5 80 18 121/73 100 Nasal Cannula 2.0 12/10/16 11:11 69 18 99 Nasal Cannula 2.0 12/10/16 11:04 69 18 98 Nasal Cannula 2.0 12/10/16 09:00 81 119/58 12/10/16 09:00 81 12/10/16 08:00 97.7 81 18 119/58 96 Nasal Cannula 2.0 12/10/16 07:15 81 18 98 Nasal Cannula 2.0 12/10/16 07:10 82 18 97 Nasal Cannula 2.0 12/10/16 07:10 Nasal Cannula 2.0 12/10/16 07:09 97 Nasal Cannula 2.0 12/10/16 04:03 97.0 88 20 127/79 99 12/10/16 04:00 82 12/10/16 03:33 78 16 99 Nasal Cannula 2.0 28 12/10/16 03:24 78 16 98 Nasal Cannula 2.0 12/10/16 01:17 96.4 12/10/16 00:11 96.4 77 20 132/71 98 Room Air 12/10/16 00:00 88 12/09/16 23:42 71 16 99 Nasal Cannula 2.0 28 12/09/16 23:34 68 16 97 Nasal Cannula 2.0 28 12/09/16 23:11 97.2 12/09/16 20:28 97.2 72 20 116/68 99 Room Air 12/09/16 20:00 83 12/09/16 19:56 77 18 99 Nasal Cannula 2.0 28 12/09/16 19:46 71 16 98 Nasal Cannula 2.0 28 12/09/16 19:46 98 Nasal Cannula 2.0 28 12/09/16 19:46 Nasal Cannula 2.0 28 12/09/16 18:27 96 12/09/16 16:13 76 18 100 Nasal Cannula 2.0 28 12/09/16 16:00 97.5 70 18 112/63 99 Nasal Cannula 2.0 12/09/16 16:00 74 16 100 Nasal Cannula 2.0 28 Intake and Output 12/10/16 12/11/16 19:00 07:00 # Voids 1 General Appearance: WD/WN HEENT: atraumatic, anicteric Respiratory/Chest: rhonchi Cardiovascular: normal rate, regular rhythm Abdomen: soft, non tender, no organomegaly Extremities: no cyanosis, no clubbing Skin: no rash, no lesions Neurologic/Psychiatric: disoriented Microbiology Date/Time Source Procedure Growth Status 12/07/16 18:31 Blood Blood Culture - Preliminary NO GROWTH AFTER 48 HOURS Resulted 12/07/16 18:20 Blood Blood Culture - Preliminary NO GROWTH AFTER 48 HOURS Resulted 12/08/16 14:30 Nasopharynx Influenza Types A,B Antigen (KENDAL) - Final Complete 12/07/16 22:40 Nasal Nares MRSA Culture - Final NO METHICILLIN RESISTANT STAPH AUREUS... Complete 12/07/16 22:40 Rectum VRE Culture - Final NO VANCOMYCIN RESISTANT ENTEROCOCCUS ... Complete Current Medications Medications (Trade) Dose Ordered Sig/Jill Route PRN Reason Start Time Stop Time Status Last Admin Dose Admin Acetaminophen (Tylenol) 650 mg Q4H PRN ORAL Mild Pain/Temp > 100.5 12/08/16 00:30 01/07/17 00:29 12/09/16 22:12 Acetaminophen/ Hydrocodone Bitart ([place] 5/325) 1 tab Q6H PRN ORAL Severe Pain (Pain Scale 7-10) 12/09/16 23:30 12/16/16 23:29 12/10/16 00:18 Albuterol/ Ipratropium (Albuterol/ Ipratropium) 3 ml Q4HRT HHN 12/08/16 15:00 12/13/16 14:59 12/10/16 11:04 Ascorbic Acid (Vitamin C) 500 mg DAILY PEG 12/10/16 09:00 01/09/17 08:59 12/10/16 09:00 Atorvastatin Calcium (Lipitor) 10 mg BEDTIME GT 12/08/16 21:00 01/07/17 20:59 12/09/16 21:21 Digoxin (Lanoxin) 0.125 mg DAILY GT 12/08/16 09:00 01/07/17 08:59 12/10/16 09:00 Levofloxacin 50 ml @ 50 mls/hr Q24H IVPB 12/09/16 15:00 12/16/16 14:59 12/08/16 16:09 Levothyroxine Sodium (Synthroid) 100 mcg DAILY@0630 ORAL 12/08/16 06:30 01/07/17 06:29 12/10/16 05:53 Magnesium Hydroxide (Mom) 7.5 ml DAILY GT 12/08/16 09:00 01/07/17 08:59 12/10/16 09:00 Methylprednisolone Sodium Succinate (Solu-MEDROL) 40 mg EVERY 8 HOURS IVP 12/08/16 15:00 01/07/17 14:59 12/10/16 05:53 Metoprolol Tartrate (Lopressor) 25 mg DAILY GT 12/08/16 09:00 01/07/17 08:59 12/10/16 09:00 Mirtazapine (Remeron) 22.5 mg EVERY 12 HOURS GT 12/08/16 09:00 01/07/17 08:59 12/10/16 09:00 Multivitamins Therapeutic (Therapeutic Multivitamin) 1 ea DAILY ORAL 12/08/16 09:00 01/07/17 08:59 12/10/16 09:00 Vitamin A/Vitamin D (A & D Oint) 1 applic DAILY TOPIC 12/08/16 09:00 01/07/17 08:59 12/10/16 09:00 CHRISTA OVIEDO DO Dec 10, 2016 12:56
[2016-12-10] MEDS: Levofloxacin 250mg/D5W 50ml IVPB SCH (15:00)
[2016-12-10 16:11] VITALS: BP 100/57
--- NOTE | 2016-12-10 18:08 | Infectious Diseases Prog Note ---
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 (4) Leukocytosis Assessment & Plan: suspect due to steroids , recommend to taper ,monitor wbc Subjective Constitutional: Reports: no symptoms HEENT: Reports: no symptoms Respiratory: Reports: dry cough Breasts: Reports: no symptoms Cardiovascular: Reports: no symptoms Gastrointestinal/Abdominal: Reports: no symptoms Genitourinary: Reports: no symptoms Neurologic: Reports: no symptoms Skin: Reports: no symptoms Endocrine: Reports: no symptoms Allergies: Coded Allergies: TETRACYCLINE (Verified Allergy, Unknown, 12/07/16) Objective Vital Signs Last 24 Hour Vital Signs Date Time Temp Pulse Resp B/P (MAP) Pulse Ox O2 Delivery O2 Flow Rate FiO2 12/10/16 16:11 97.7 70 18 100/57 96 Nasal Cannula 2.0 12/10/16 15:10 73 18 98 Nasal Cannula 2.0 12/10/16 15:02 71 18 90 Nasal Cannula 2.0 12/10/16 12:49 97.5 80 18 121/73 100 Nasal Cannula 2.0 12/10/16 12:00 86 12/10/16 11:11 69 18 99 Nasal Cannula 2.0 12/10/16 11:04 69 18 98 Nasal Cannula 2.0 12/10/16 09:00 81 119/58 12/10/16 09:00 81 12/10/16 08:00 88 12/10/16 08:00 97.7 81 18 119/58 96 Nasal Cannula 2.0 12/10/16 07:15 81 18 98 Nasal Cannula 2.0 28 12/10/16 07:10 82 18 97 Nasal Cannula 2.0 12/10/16 07:10 Nasal Cannula 2.0 12/10/16 07:09 97 Nasal Cannula 2.0 12/10/16 04:03 97.0 88 20 127/79 99 12/10/16 04:00 82 12/10/16 03:33 78 16 99 Nasal Cannula 2.0 12/10/16 03:24 78 16 98 Nasal Cannula 2.0 28 12/10/16 01:17 96.4 12/10/16 00:11 96.4 77 20 132/71 98 Room Air 12/10/16 00:00 88 12/09/16 23:42 71 16 99 Nasal Cannula 2.0 28 12/09/16 23:34 68 16 97 Nasal Cannula 2.0 28 12/09/16 23:11 97.2 12/09/16 20:28 97.2 72 20 116/68 99 Room Air 12/09/16 20:00 83 12/09/16 19:56 77 18 99 Nasal Cannula 2.0 28 12/09/16 19:46 71 16 98 Nasal Cannula 2.0 28 12/09/16 19:46 98 Nasal Cannula 2.0 12/09/16 19:46 Nasal Cannula 2.0 28 12/09/16 18:27 96 Height (Feet): 5 Height (Inches): 2.00 Weight (Pounds): 111 General Appearance: WD/WN, no acute distress HEENT: normocephalic, atraumatic, anicteric, mucous membranes moist, PERRL Respiratory/Chest: chest wall non-tender, no respiratory distress, no accessory muscle use, decreased breath sounds, expiratory wheezing Cardiovascular: normal peripheral pulses, normal rate, regular rhythm, no gallop/murmur, no JVD Abdomen: normal bowel sounds, soft, non tender, no organomegaly, non distended , no mass, no scars Genitourinary: normal external genitalia Extremities: no cyanosis, no clubbing Skin: no rash, no lesions, no ulcers Neurologic/Psychiatric: alert Microbiology Date/Time Source Procedure Growth Status 12/07/16 18:31 Blood Blood Culture - Preliminary NO GROWTH AFTER 48 HOURS Resulted 12/07/16 18:20 Blood Blood Culture - Preliminary NO GROWTH AFTER 48 HOURS Resulted 12/08/16 14:30 Nasopharynx Influenza Types A,B Antigen (KENDAL) - Final Complete 12/07/16 22:40 Nasal Nares MRSA Culture - Final NO METHICILLIN RESISTANT STAPH AUREUS... Complete 12/07/16 22:40 Rectum VRE Culture - Final NO VANCOMYCIN RESISTANT ENTEROCOCCUS ... Complete Current Medications Medications (Trade) Dose Ordered Sig/Jill Route PRN Reason Start Time Stop Time Status Last Admin Dose Admin Acetaminophen (Tylenol) 650 mg Q4H PRN ORAL Mild Pain/Temp > 100.5 12/08/16 00:30 01/07/17 00:29 12/09/16 22:12 Acetaminophen/ Hydrocodone Bitart ([place] 5/325) 1 tab Q6H PRN ORAL Severe Pain (Pain Scale 7-10) 12/09/16 23:30 12/16/16 23:29 12/10/16 00:18 Albuterol/ Ipratropium (Albuterol/ Ipratropium) 3 ml Q4HRT HHN 12/08/16 15:00 12/13/16 14:59 12/10/16 15:02 Ascorbic Acid (Vitamin C) 500 mg DAILY PEG 12/10/16 09:00 01/09/17 08:59 12/10/16 09:00 Atorvastatin Calcium (Lipitor) 10 mg BEDTIME GT 12/08/16 21:00 01/07/17 20:59 12/09/16 21:21 Digoxin (Lanoxin) 0.125 mg DAILY GT 12/08/16 09:00 01/07/17 08:59 12/10/16 09:00 Levofloxacin 50 ml @ 50 mls/hr Q24H IVPB 12/09/16 15:00 12/16/16 14:59 12/10/16 15:00 Levothyroxine Sodium (Synthroid) 100 mcg DAILY@0630 ORAL 12/08/16 06:30 01/07/17 06:29 12/10/16 05:53 Magnesium Hydroxide (Mom) 7.5 ml DAILY GT 12/08/16 09:00 01/07/17 08:59 12/10/16 09:00 Methylprednisolone Sodium Succinate (Solu-MEDROL) 40 mg Q12HR IVP 12/10/16 21:00 01/09/17 20:59 Metoprolol Tartrate (Lopressor) 25 mg DAILY GT 12/08/16 09:00 01/07/17 08:59 12/10/16 09:00 Mirtazapine (Remeron) 22.5 mg EVERY 12 HOURS GT 12/08/16 09:00 01/07/17 08:59 12/10/16 09:00 Multivitamins Therapeutic (Therapeutic Multivitamin) 1 ea DAILY ORAL 12/08/16 09:00 01/07/17 08:59 12/10/16 09:00 Vitamin A/Vitamin D (A & D Oint) 1 applic DAILY TOPIC 12/08/16 09:00 01/07/17 08:59 12/10/16 09:00 aLrissa Ding M.D. Dec 10, 2016 18:08
--- NOTE | 2016-12-10 18:45 | Cardiology Report ---
APPROVED REPORT EKG Measurement Heart [id number] Normal sinus rhythm Left axis deviation Anterior infarct, age undetermined Abnormal ECG
[2016-12-10 20:00] VITALS: BP 107/56
--- NOTE | 2016-12-10 21:29 | General Progress Note ---
Assessment/Plan Problem List: (1) Dyspnea ICD Codes: R06.00 - Dyspnea, unspecified SNOMED: 658375407 (2) Respiratory distress ICD Codes: R06.00 - Dyspnea, unspecified SNOMED: 922351295 (3) COPD exacerbation ICD Codes: J44.1 - Chronic obstructive pulmonary disease with (acute) exacerbation SNOMED: 613596006, 108536475 (4) Hypoxia ICD Codes: R09.02 - Hypoxemia SNOMED: 85828608, 097172786 Status: progressing Assessment/Plan copd exac improving resp insuff afebrile improving Subjective ROS Limited/Unobtainable: Yes Allergies: Coded Allergies: TETRACYCLINE (Verified Allergy, Unknown, 12/07/16) Objective Last 24 Hour Vital Signs Date Time Temp Pulse Resp B/P (MAP) Pulse Ox O2 Delivery O2 Flow Rate FiO2 12/10/16 20:01 78 18 100 Nasal Cannula 2.0 12/10/16 20:00 96.6 71 20 107/56 97 Nasal Cannula 2.0 12/10/16 19:52 74 18 99 Nasal Cannula 2.0 12/10/16 19:52 Nasal Cannula 2.0 12/10/16 19:52 99 Nasal Cannula 2.0 28 12/10/16 16:11 97.7 70 18 100/57 96 Nasal Cannula 2.0 12/10/16 16:00 96 12/10/16 15:10 73 18 98 Nasal Cannula 2.0 12/10/16 15:02 71 18 90 Nasal Cannula 2.0 12/10/16 12:49 97.5 80 18 121/73 100 Nasal Cannula 2.0 12/10/16 12:00 86 12/10/16 11:11 69 18 99 Nasal Cannula 2.0 12/10/16 11:04 69 18 98 Nasal Cannula 2.0 28 12/10/16 09:00 81 119/58 12/10/16 09:00 81 12/10/16 08:00 88 12/10/16 08:00 97.7 81 18 119/58 96 Nasal Cannula 2.0 12/10/16 07:15 81 18 98 Nasal Cannula 2.0 28 12/10/16 07:10 82 18 97 Nasal Cannula 2.0 28 12/10/16 07:10 Nasal Cannula 2.0 12/10/16 07:09 97 Nasal Cannula 2.0 12/10/16 04:03 97.0 88 20 127/79 99 12/10/16 04:00 82 12/10/16 03:33 78 16 99 Nasal Cannula 2.0 12/10/16 03:24 78 16 98 Nasal Cannula 2.0 12/10/16 01:17 96.4 12/10/16 00:11 96.4 77 20 132/71 98 Room Air 12/10/16 00:00 88 12/09/16 23:42 71 16 99 Nasal Cannula 2.0 12/09/16 23:34 68 16 97 Nasal Cannula 2.0 12/09/16 23:11 97.2 Intake and Output 12/10/16 12/11/16 19:00 07:00 # Voids 3 Height (Feet): 5 Height (Inches): 2.00 Weight (Pounds): 111 Neck: supple Cardiovascular: normal rate Respiratory/Chest: lungs clear Abdomen: soft Jaspal Khan MD Dec 10, 2016 21:29
[2016-12-11 00:11] VITALS: BP 116/67
[2016-12-11 04:00] VITALS: BP 117/60
[2016-12-11] MEDS: Albuterol/Ipratropium 3ml neb HHN SCH ×3 (04:12→11:37)
[2016-12-11 07:58] VITALS: BP 134/68
--- NOTE | 2016-12-11 08:57 | Pulmonology Progress Note ---
Assessment/Plan Assessment/Plan 1. Chronic obstructive pulmonary disease exacerbation. 2. Leukocytosis, consider urinary tract infection or bronchitis. 3. Dementia. 4. History of stroke with right hemiparesis, aphasia and dysarthria. 5. Hypertension. 6. Gastrostomy tube. 7. History of atrial fibrillation. dc planning may need SNF w new GT cont abx and HHN Subjective ROS Limited/Unobtainable: Yes Allergies: Coded Allergies: TETRACYCLINE (Verified Allergy, Unknown, 12/07/16) Objective Last 24 Hour Vital Signs Date Time Temp Pulse Resp B/P (MAP) Pulse Ox O2 Delivery O2 Flow Rate FiO2 12/11/16 07:58 97.3 84 18 134/68 97 Nasal Cannula 2.0 12/11/16 07:38 80 18 100 Nasal Cannula 2.0 12/11/16 07:38 Nasal Cannula 2.0 12/11/16 07:27 78 18 98 Nasal Cannula 2.0 12/11/16 07:26 98 Nasal Cannula 2.0 12/11/16 07:26 78 18 Nasal Cannula 2.0 12/11/16 04:19 79 18 100 Nasal Cannula 2.0 12/11/16 04:12 75 18 95 Nasal Cannula 2.0 12/11/16 04:00 79 12/11/16 04:00 97.0 77 20 117/60 97 Nasal Cannula 2.0 12/11/16 00:11 97.5 78 20 116/67 98 Nasal Cannula 2.0 12/11/16 00:00 76 12/10/16 23:58 74 18 100 Nasal Cannula 2.0 12/10/16 23:49 70 18 95 Nasal Cannula 2.0 12/10/16 20:01 78 18 100 Nasal Cannula 2.0 12/10/16 20:00 96.6 71 20 107/56 97 Nasal Cannula 2.0 12/10/16 20:00 70 12/10/16 19:52 74 18 99 Nasal Cannula 2.0 12/10/16 19:52 Nasal Cannula 2.0 12/10/16 19:52 99 Nasal Cannula 2.0 12/10/16 16:11 97.7 70 18 100/57 96 Nasal Cannula 2.0 12/10/16 16:00 96 12/10/16 15:10 73 18 98 Nasal Cannula 2.0 12/10/16 15:02 71 18 90 Nasal Cannula 2.0 12/10/16 12:49 97.5 80 18 121/73 100 Nasal Cannula 2.0 12/10/16 12:00 86 12/10/16 11:11 69 18 99 Nasal Cannula 2.0 12/10/16 11:04 69 18 98 Nasal Cannula 2.0 12/10/16 09:00 81 119/58 12/10/16 09:00 81 Objective G tube General Appearance: no acute distress Respiratory/Chest: rhonchi Cardiovascular: normal rate Microbiology Date/Time Source Procedure Growth Status 12/08/16 14:30 Nasopharynx Influenza Types A,B Antigen (KENDAL) - Final Complete Current Medications Medications (Trade) Dose Ordered Sig/Jill Route PRN Reason Start Time Stop Time Status Last Admin Dose Admin Acetaminophen (Tylenol) 650 mg Q4H PRN ORAL Mild Pain/Temp > 100.5 12/08/16 00:30 01/07/17 00:29 12/10/16 18:18 Acetaminophen/ Hydrocodone Bitart ([place] 5/325) 1 tab Q6H PRN ORAL Severe Pain (Pain Scale 7-10) 12/09/16 23:30 12/16/16 23:29 12/10/16 22:03 Albuterol/ Ipratropium (Albuterol/ Ipratropium) 3 ml Q4HRT HHN 12/08/16 15:00 12/13/16 14:59 12/11/16 07:32 Ascorbic Acid (Vitamin C) 500 mg DAILY PEG 12/10/16 09:00 01/09/17 08:59 12/10/16 09:00 Atorvastatin Calcium (Lipitor) 10 mg BEDTIME GT 12/08/16 21:00 01/07/17 20:59 12/10/16 20:51 Digoxin (Lanoxin) 0.125 mg DAILY GT 12/08/16 09:00 01/07/17 08:59 12/10/16 09:00 Levofloxacin 50 ml @ 50 mls/hr Q24H IVPB 12/09/16 15:00 12/16/16 14:59 12/10/16 15:00 Levothyroxine Sodium (Synthroid) 100 mcg DAILY@0630 ORAL 12/08/16 06:30 01/07/17 06:29 12/11/16 06:01 Magnesium Hydroxide (Mom) 7.5 ml DAILY GT 12/08/16 09:00 01/07/17 08:59 12/10/16 09:00 Methylprednisolone Sodium Succinate (Solu-MEDROL) 40 mg Q12HR IVP 12/10/16 21:00 01/09/17 20:59 12/10/16 20:52 Metoprolol Tartrate (Lopressor) 25 mg DAILY GT 12/08/16 09:00 01/07/17 08:59 12/10/16 09:00 Mirtazapine (Remeron) 22.5 mg EVERY 12 HOURS GT 12/08/16 09:00 01/07/17 08:59 12/10/16 20:52 Multivitamins Therapeutic (Therapeutic Multivitamin) 1 ea DAILY ORAL 12/08/16 09:00 01/07/17 08:59 12/10/16 09:00 Vitamin A/Vitamin D (A & D Oint) 1 applic DAILY TOPIC 12/08/16 09:00 01/07/17 08:59 12/10/16 09:00 SOFY ARMENTA Dec 11, 2016 08:57
[2016-12-11] MEDS: Vitamin A&D Oint 2oz Tube TOPIC SCH (09:00)
[2016-12-11] MEDS: Metoprolol 25mg tab GT SCH (09:40)
[2016-12-11] MEDS: Solu-MEDROL 40mg Inj IVP SCH (09:40)
[2016-12-11] MEDS: Ascorbic Acid 500mg tab PEG SCH (09:41)
[2016-12-11] MEDS: Digoxin 0.125mg tab GT SCH (09:42)
[2016-12-11] MEDS: Milk of Magnesia 30ml Ud GT SCH (09:42)
[2016-12-11] MEDS: Multivitamin w/Minerals tab ORAL SCH (09:42)
--- NOTE | 2016-12-11 11:09 | Diagnostic Imaging Report ---
Indication: Shortness of breath Technique: One view of the chest Comparison: 12/07/2016 Findings: There is increased hazy and reticular interstitial opacity in the left mid and lower lung. There is new or increased right infrahilar consolidation. There is trace blunting of the left costophrenic sulcus, stable. The heart is upper limits of normal in size Impression: New left mid and lower lung infiltrate versus edema. New or increased right infrahilar consolidation. Suspect trace left pleural effusion
[2016-12-11 11:42] VITALS: BP 129/74
[2016-12-11] MEDS ORDERED: Sterile Water Irrig 1000ml IRRIG ONE (12:17)
--- NOTE | 2016-12-11 23:01 | Infectious Diseases Prog Note ---
Assessment/Plan Problems: (1) Acute bronchitis Assessment & Plan: with negative influenza screening, continue levaquin empirically for 7 days , repeat CXR in am (2) COPD exacerbation Assessment & Plan: due to the above, continue nebulizer treatment, and steroids , monitor CXR (3) Respiratory distress Assessment & Plan: due to the above , continue oxygen to keep O2 sat >90%, incident response engineer is following (4) Leukocytosis Assessment & Plan: suspect due to steroids , recommend to taper ,monitor wbc Subjective Constitutional: Reports: no symptoms HEENT: Reports: no symptoms Respiratory: Reports: no symptoms Breasts: Reports: no symptoms Cardiovascular: Reports: no symptoms Gastrointestinal/Abdominal: Reports: no symptoms Genitourinary: Reports: no symptoms Neurologic: Reports: no symptoms Psychiatric: Reports: no symptoms Skin: Reports: no symptoms Endocrine: Reports: no symptoms Hematologic: Reports: no symptoms Allergies: Coded Allergies: TETRACYCLINE (Verified Allergy, Unknown, 12/07/16) Objective Vital Signs Last 24 Hour Vital Signs Date Time Temp Pulse Resp B/P (MAP) Pulse Ox O2 Delivery O2 Flow Rate FiO2 12/11/16 11:51 76 16 100 Nasal Cannula 2.0 12/11/16 11:42 97.1 74 18 129/74 98 Nasal Cannula 2.0 12/11/16 11:33 75 18 98 Nasal Cannula 2.0 12/11/16 09:42 84 12/11/16 09:40 84 134/68 12/11/16 08:00 81 12/11/16 07:58 97.3 84 18 134/68 97 Nasal Cannula 2.0 12/11/16 07:38 80 18 100 Nasal Cannula 2.0 12/11/16 07:38 Nasal Cannula 2.0 12/11/16 07:27 78 18 98 Nasal Cannula 2.0 28 12/11/16 07:26 98 Nasal Cannula 2.0 28 12/11/16 07:26 78 18 Nasal Cannula 2.0 12/11/16 04:19 79 18 100 Nasal Cannula 2.0 12/11/16 04:12 75 18 95 Nasal Cannula 2.0 12/11/16 04:00 79 12/11/16 04:00 97.0 77 20 117/60 97 Nasal Cannula 2.0 12/11/16 00:11 97.5 78 20 116/67 98 Nasal Cannula 2.0 12/11/16 00:00 76 12/10/16 23:58 74 18 100 Nasal Cannula 2.0 28 12/10/16 23:49 70 18 95 Nasal Cannula 2.0 28 Height (Feet): 5 Height (Inches): 2.00 Weight (Pounds): 111 General Appearance: WD/WN, no acute distress HEENT: normocephalic, atraumatic, anicteric, mucous membranes moist, PERRL Respiratory/Chest: chest wall non-tender, lungs clear, normal breath sounds, no respiratory distress Cardiovascular: normal peripheral pulses, normal rate, regular rhythm, no gallop/murmur, no JVD Abdomen: normal bowel sounds, soft, non tender, no organomegaly, non distended , no mass, no scars Genitourinary: normal external genitalia Extremities: no cyanosis, no clubbing Skin: no rash, no lesions, no ulcers Neurologic/Psychiatric: alert, responsive Larissa Ding M.D. Dec 11, 2016 23:00
--- NOTE | 2016-12-12 09:28 | Discharge Summary ---
Discharge Summary Hospital Course Date of Admission Dec 07, 2016 at 21:17 Date of Discharge Dec 11, 2016 at 12:18 Admitting Diagnosis copd, hypoxia HPI Tiera Contreras is a 85 year old female who was admitted on Dec 07, 2016 at 21: 17 for Chronic Obstructive Pulmonary Disorder, Hypoxia Hospital Course dc summary #[id number] Discharge Medications Continued Medications: Atorvastatin Calcium* (Lipitor*) 10 Mg Tablet 10 MG GT BEDTIME, TAB Digoxin* (Digoxin*) 125 Mcg Tablet 125 MCG GT DAILY, TAB Ipratropium/Albuterol Sulfate (DuoNeb 0.5-3(2.5)mg/3ml) 3 Ml Ampul.neb 3 ML HHN EVERY 4 HOURS, EA Levothyroxine Sodium* (Levothyroxine Sodium*) 100 Mcg Tablet 100 MCG GT DAILY, TAB Take in the morning on an empty stomach, at least 30 minutes before food. Magnesium Hydroxide* (Milk Of Magnesia*) 400 Mg/5 Ml Oral.susp 7.5 ML GT DAILY, ML Metoprolol Tartrate* (Metoprolol Tartrate*) 25 Mg Tablet 25 MG GT DAILY, TAB Mirtazapine* (Remeron*) 15 Mg Tablet 22.5 MG GT EVERY 12 HOURS, TAB Discharge Discharge Disposition Patient was discharged to [facility] assisted living Discharge Diagnoses: Discharge Instructions Discharge Instructions Special Instructions I have been assigned to complete a D/C Summary on this account. I was not involved in the patient management Angela Fitzpatrick NP (Vanchtein) Dec 12, 2016 09:28
--- NOTE | 2016-12-12 21:45 | Discharge Summary 2 SIG ---
DATE OF ADMISSION: 12/07/2016 DATE OF DISCHARGE: 12/11/2016 REASON FOR ADMISSION: 85-year-old female with a history of COPD, GERD, stroke, atrial fibrillation, hypertension, noted to be acutely hypoxic. Paramedics were contacted to bring the patient for further evaluation. The patient was essentially nonverbal and unable to provide any information. In the emergency department, the patient was found to have leukocytosis, WBC -13.5, hemoglobin and hematocrit were stable. ABG revealed mild hypoxia with pO2 of 64 and O2 saturation 91.4% on one liter of nasal cannula. Chemistry was stable. Troponin was negative. Chest x-ray revealed no acute cardiopulmonary pathology. The patient was admitted for further management of COPD exacerbation and acute bronchitis. HOSPITAL STAY: The patient was admitted. Supplemental oxygen provided as needed to keep saturation above 92%. Pulmonary toilet provided around the clock and as needed. Pulmonology consult was requested. The patient was on the IV steroids and empiric antibiotics. Infectious Disease specialist closely followed. Blood culture were negative. Influenza screen test was negative. Sputum culture was not collected. Leukocytosis persisted , likely secondary to steroids as per Infectious Disease comment. Steroids were tapered and discontinued prior to discharge. The patient was on empiric antibiotics. No fever. Respiratory status improved. Saturation 100% on two liters nasal cannula. Strict aspiration precautions were maintained. The patient was on the G-tube feeding. Swallow evaluation done, and speech therapist recommended no oral intake until video swallow. Oral care was continued. Tube feeding was continued. Blood pressure was managed with beta-chelle. The patient was on digoxin, statin was continued. The patient remained in sinus rhythm. Venous duplex of bilateral lower extremities was negative. Wound care was provided as per wound nurse recommendations. The patient was stable for transfer to [facility]. FINAL DIAGNOSES: 1. Acute bronchitis. 2. Chronic obstructive pulmonary disease exacerbation. 3. Leukocytosis. 4. Hypertension. 5. Dementia. 6. History of cerebrovascular accident with right hemiparesis, aphasia, and dysarthria. 7. Dysphagia, on gastrostomy tube. 8. History of atrial fibrillation. DISCHARGE MEDICATIONS: See medication reconciliation list. DISCHARGE INSTRUCTIONS: The patient was discharged to [facility]. Follow up with medical doctor at the facility. Jaspal Khan M.D. I have been assigned to dictate discharge summary on this account and I was not involved in the patient's management. Angela Dallasanderson [id number] DR: Chiqui JOB#: [id number] CC: BEATRIZ
--- NOTE | 2016-12-14 18:01 | Cardiology Report ---
APPROVED REPORT EKG Measurement Heart [id number] Normal sinus rhythm Normal ECG
== END 2016-12-11 12:18 | disposition home or self-care (01) | DRG 190 ==
LOC: EDBD 17:54 → EMR 21:16 → 2E 21:17 → EDBEDREQ 22:02
DX: J44.1 Chronic obstructive pulmonary disease with (acute) exacerbation (principal); L89.153 Pressure ulcer of sacral region, stage 3; I69.351 Hemiplegia and hemiparesis following cerebral infarction affecting right dominant side; F03.90 Unspecified dementia, unspecified severity, without behavioral disturbance, psychotic disturbance, mood disturbance, and anxiety; Z43.1 Encounter for attention to gastrostomy; N39.0 Urinary tract infection, site not specified; J20.9 Acute bronchitis, unspecified; I69.320 Aphasia following cerebral infarction; I69.322 Dysarthria following cerebral infarction; I10 Essential (primary) hypertension; R09.02 Hypoxemia; K21.9 Gastro-esophageal reflux disease without esophagitis; J44.0 Chronic obstructive pulmonary disease with (acute) lower respiratory infection; I48.91 Unspecified atrial fibrillation; Z88.8 Allergy status to other drugs, medicaments and biological substances
CPT/HCPCS: 36415; 36600; 71010; 80053; 82550; 82553; 82803; 82962; 83690; 83880; 84484; 85007; 85025; 85610; 85730; 86710; 87040; 87081; 93005; 93970; 94640; 94664; 94760; J7620